=== PATIENT | male | born 1975 | race Two or more races ===

== ENCOUNTER 2019-01-19 01:56 | Emergency (ER) | payer OTHER ==
--- NOTE | 2019-01-19 03:44 | Diagnostic Imaging Report ---
EXAMINATION: CT of the pelvis without contrast. TECHNIQUE: Spiral CT images of the pelvis were performed from the iliac crests to the lesser trochanters. No intravenous contrast was given per physician's request. Coronal and sagittal reformatted images were obtained. COMPARISON: None. CLINICAL HISTORY:Pelvic pain, testicular pain for one month DISCUSSION: ABSENCE OF INTRAVENOUS CONTRAST DECREASES SENSITIVITY FOR DETECTION OF FOCAL LESIONS AND VASCULAR PATHOLOGY. PELVIS: PELVIC ORGANS/BLADDER: Bladder is unremarkable. No focal lesions or thickening. Prostate measures approximately 3.8 x 3.8 x 4.9 cm (estimated volume 36 mL), slightly enlarged PERITONEUM/RETROPERITONEUM: No free air or fluid. LYMPH NODES: No pelvic or inguinal adenopathy. VESSELS: Unremarkable for noncontrast exam. GI TRACT: Visualized bowel shows no dilation or obstruction. Appendix is well identified and normal in caliber. No pericolonic inflammatory changes. BONES AND SOFT TISSUES: No aggressive lytic lesions. Small fat-containing right inguinal hernia. No hydrocele is noted in the scrotum. IMPRESSION: 1. No acute abnormalities in this limited noncontrast exam. 2. Small fat-containing right inguinal hernia. 3. Mild prostatomegaly. Signed by: Dr. Mt Arevalo M.D. on 01/19/2019 3:40 AM
--- NOTE | 2019-01-19 04:26 | Diagnostic Imaging Report ---
EXAMINATION: Scrotal ultrasound CLINICAL INDICATION: Left-sided testicle pain. COMPARISON: None.. TECHNIQUE: Grayscale and color Doppler evaluation of the scrotum was performed in transverse and longitudinal planes. FINDINGS: RIGHT: The right testicle measures 3.7 x 2.1 x 2.2 cm. There are no masses or calcifications.. Normal vascularity. The right epididymis measures 0.5 x 0.6 x 0.8 cm. No nodules or masses.. Normal vascularity. Small right hydrocele. No varicocele. There is normal arterial and venous flow to the right testicle, without evidence of torsion. LEFT: The left testicle measures 4.3 x 2.2 x 2.8 cm. There are no masses or calcifications.. Normal vascularity. The left epididymis measures 0.7 x 0.7 x 0.6 cm. No nodules or masses.. Normal vascularity. Trace left hydrocele. No varicocele. There is normal arterial and venous flow flow to the left testicle without evidence of torsion. The scrotum has a normal appearance, without focal lesions. IMPRESSION: 1. Normal bilateral testicular size and echogenicity. No focal lesions. Normal arterial and venous flow with low likelihood of torsion. 2. Small right and trace left hydroceles. Signed by: Dr. Mt Arevalo M.D. on 01/19/2019 4:22 AM
== END 2019-01-19 04:49 | disposition home or self-care (01) ==
LOC: EDBD 01:56 → FSED 01:56
DX: N50.812 Left testicular pain (principal); N43.3 Hydrocele, unspecified; N41.0 Acute prostatitis; K40.90 Unilateral inguinal hernia, without obstruction or gangrene, not specified as recurrent
CPT/HCPCS: 72192; 76870; 85025; 99283